=== PATIENT | female | born 1995 | race Caucasian/White ===

== ENCOUNTER 2019-02-28 14:06 | Outpatient (CLI) | payer OTHER | END 2019-02-28 14:07 | disposition home or self-care (01) | LOC: CTENTCT 14:06 | PROVIDERS: ATTEND Student in an Organized Health Care Education/Training Program | DX: J32.9 Chronic sinusitis, unspecified (principal) | CPT/HCPCS: 70486 ==

== ENCOUNTER 2020-07-17 08:21 | Day surgery (SDC) | payer BC ==
[2020-07-13 14:05] VITALS: BMI 25.5
[2020-07-17] MEDS ORDERED: Fentanyl 250 MCG/5 ML VIAL ONE (08:28)
[2020-07-17] MEDS ORDERED: AFRIN NASAL MIST 15 ML BOT ONE ×2 (09:00→10:25)
[2020-07-17] MEDS ORDERED: Midazolam HCl 2 mg/2 ml Vial ONE (09:37)
[2020-07-17] MEDS ORDERED: XYLOCAINE 2%-EPI 1:100,000 20 ML VIAL ONE (10:25)
[2020-07-17] MEDS ORDERED: Propofol 1,000 MG/100 ML VIAL IV ONE (10:54)
[2020-07-17] MEDS ORDERED: Glycopyrrolate 0.2 MG/ML 5 ML SYRINGE ONE (11:10)
[2020-07-17] MEDS ORDERED: Dexamethasone 20 MG/5 ML VIAL ONE (11:10)
[2020-07-17] MEDS ORDERED: PROPOFOL 200 MG/20 ML VIAL ONE (11:10)
[2020-07-17] MEDS ORDERED: Rocuronium Bromide 10 MG/ML (10ML VIAL) ONE (11:10)
[2020-07-17] MEDS ORDERED: Lidocaine 1% PF 5 ML VIAL ONE (11:10)
[2020-07-17] MEDS ORDERED: Ondansetron PF 4 MG/2 ML Vial ONE (11:10)
[2020-07-17] MEDS ORDERED: Fentanyl 100 MCG/2 ML VIAL ONE (12:01)
[2020-07-17] MEDS ORDERED: HYDROcodone/Acetaminophen 5/325 mg Tablet ONE ×2 (13:27)
[2020-07-17] MEDS ORDERED: Ibuprofen 100 MG/5 ML UDCUP ONE (14:19)
--- NOTE | 2020-07-19 12:27 | OP ---
DATE OF PROCEDURE: 07/17/2020 PREOPERATIVE DIAGNOSES: Recurrent acute sinusitis, nasal congestion, turbinate hypertrophy. POSTOPERATIVE DIAGNOSES: Recurrent acute sinusitis, nasal congestion, turbinate hypertrophy. PROCEDURES PERFORMED: 1. Bilateral image-guided endoscopic sinus surgery. 2. Bilateral submucosal reduction of inferior turbinates. 3. Bilateral balloon dilation of frontal sinuses. 4. Bilateral balloon dilation of maxillary sinuses. 5. Bilateral dilation of sphenoid sinuses. PERMIT: Procedures, benefits, and risks including those of bleeding, infection, injury from anesthesia, allergic reactions, cerebrospinal fluid leak necessitating revision or repair and alternatives were reviewed with the patient and family, who expressed understanding of the information. The consent form was signed and witnessed, and a paper copy of the consent form is available for review in the paper chart. INDICATION: This is a 24-year-old female patient presenting to clinic with recurrent acute sinusitis, persistent facial pain and pressure between sinus infections and repetitive antibiotic therapy, which improved sinus pain and pressure. However, sinus pain and pressure quickly returns. The patient was brought to the operating room now for operative treatment. ASSISTANTS: None. FINDINGS: Narrow frontal sinus outflow tracts, narrow nasal cavities, and turbinate hypertrophy. DESCRIPTION OF PROCEDURE: The patient was brought to the operating room and laid supine on the operating room table. General endotracheal anesthesia was administered. The nasal cavity was decongested with 6 Afrin-soaked cottonoids placed in the bilateral nasal cavities, 3 on each side. The patient was prepped and draped in usual fashion. Image guidance was then calibrated and used for confirmation of sinus outflow tracts throughout the procedure. The nose was then evaluated endoscopically and first the left side was addressed with a 0-degree endoscope, and the balloon instrument was inserted on the left side, and the left frontal sinus outflow tract was then carefully identified and confirmed with a frontal sinus seeker, and then the frontal sinus was then balloon dilated on the left side. The balloon was then taken down and then the frontal sinus seeker was then used to confirm that the frontal sinus was indeed dilated and that the aperture was of significant diameter. Next, the same procedure was performed on the right side. The 0-degree endoscope was used to identify the frontal sinus outflow tract with the balloon instrument, and once the frontal sinus was identified and confirmed with transillumination, the frontal sinus seeker was then used to again confirm the location and the balloon was then dilated and then the frontal sinus seeker was then used to confirm adequate dilation of the frontal sinus outflow tract. Next, the balloon was configured for the sphenoid sinus and the left sphenoid sinus was identified using the posterior choana and the septum and the superior turbinate. After this was identified, the balloon instrument was then used to insert in the natural ostia and the sphenoid sinus ostia was then balloon dilated and then image-guided suction was then used to confirm dilation of adequate size. Next, the same procedure was performed on the right side. The endoscope and the balloon dilator were then used to cannulate the sphenoid sinus in the same manner and the balloon was then dilated and then removed, and then the straight suction was then again used to confirm location and then appropriate diameter of dilation. Next, attention was turned to the left maxillary os and the balloon dilator was then inserted in the maxillary sinus. Maxillary cavity was transilluminated and then balloon dilated, and a straight suction was then used to confirm location and adequate size of dilation. The same procedure was performed on the right side with a balloon dilator and 0-degree endoscope confirmed location of the maxillary os and then transillumination confirmed positioning. The balloon was then inflated and dilated and then removed, and the straight suction was then used to confirm location and adequate diameter. After this was completed, 1% lidocaine with 1:100,000 epinephrine was injected 1 mL on each side along the inferior turbinate. The oscillating microdebrider with a turbinate blade was then used to make an anterior-inferior stab incision on the turbinate. The mucosa was then elevated off the erectile turbinate tissue, which was then reduced from the inside adequately on the left side and was then performed on the right side with the same procedure. The oscillating microdebrider was then used to elevate the mucosa anteriorly to posteriorly and then the oscillating feature was then used to reduce the size of the inferior turbinate. After this was completed, the sinuses were then evaluated endoscopically and any bleeding was suctioned, and the patient had Afrin-soaked cottonoids to control any bleeding and the patient was turned back over to Anesthesia for emergence. Job ID: [id number]
== END 2020-07-17 14:40 | disposition home or self-care (01) ==
LOC: SDC 08:21
PROVIDERS: ATTEND Student in an Organized Health Care Education/Training Program
PROC: 09QW4ZZ Repair Right Sphenoid Sinus, Percutaneous Endoscopic Approach (ICD-10-PCS; principal; 2020-07-17)
PROC: 09QR4ZZ Repair Left Maxillary Sinus, Percutaneous Endoscopic Approach (ICD-10-PCS; principal; 2020-07-17)
PROC: 09QX4ZZ Repair Left Sphenoid Sinus, Percutaneous Endoscopic Approach (ICD-10-PCS; principal; 2020-07-17)
PROC: 09QT4ZZ Repair Left Frontal Sinus, Percutaneous Endoscopic Approach (ICD-10-PCS; principal; 2020-07-17)
PROC: 8E09XBZ Computer Assisted Procedure of Head and Neck Region (ICD-10-PCS; principal; 2020-07-17)
PROC: 09QS4ZZ Repair Right Frontal Sinus, Percutaneous Endoscopic Approach (ICD-10-PCS; principal; 2020-07-17)
PROC: 09TL0ZZ Resection of Nasal Turbinate, Open Approach (ICD-10-PCS; principal; 2020-07-17)
PROC: 09QQ4ZZ Repair Right Maxillary Sinus, Percutaneous Endoscopic Approach (ICD-10-PCS; principal; 2020-07-17)
DX: J01.91 Acute recurrent sinusitis, unspecified (principal); J34.3 Hypertrophy of nasal turbinates; J34.89 Other specified disorders of nose and nasal sinuses; J34.2 Deviated nasal septum; B37.0 Candidal stomatitis; J45.909 Unspecified asthma, uncomplicated; F41.9 Anxiety disorder, unspecified; Z86.16 Personal history of COVID-19; Z79.899 Other long term (current) drug therapy; Z88.1 Allergy status to other antibiotic agents; Z88.8 Allergy status to other drugs, medicaments and biological substances; Z91.018 Allergy to other foods
CPT/HCPCS: J1100; J2250; J2405; J2704; J3010